=== PATIENT | female | born 1950 ===

== ENCOUNTER 2018-03-31 05:11 | Day surgery (SDC) | payer OTHER ==
[~2018-03-31 05:11] MED LIST: NEURONTIN300 MG PO; PAXIL20 MG PO; TOPROL XL50 M1 PO; TRAMADOL HCL E300 MG PO
== END 2018-03-31 10:25 | disposition home or self-care (01) ==
LOC: CIR.AMB 05:11
DX: L72.0 Epidermal cyst (principal)